=== PATIENT | female | born 1995 | race Two or more races ===

== ENCOUNTER 2018-05-23 03:43 | Emergency (ER) | payer MEDICAID ==
[~2018-05-23] VITALS: Ht 160 cm; Wt 53.1 kg
--- NOTE | 2018-05-23 03:55 | NUR ---
PT CAME TO EMERGENCY DEPT. COMPLAINING OF ITCHINESS, REDNESS, AND DIZZINESS AFTER TAKING FLAYGYL AND DIFLUCAN AROUND 2300 YESTERDAY. PT AXO4. RESPIRATIONS EVEN AND UNLABORED. BILATERAL REDNESS AROUND BOTH EYES. 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 PT SATURATING 99% ON ROOM AIR.
[2018-05-23] MEDS ORDERED: diphenhydrAMINE HCL 50 MG/ML VIAL IM ONE (04:00)
[2018-05-23] MEDS ORDERED: diphenhydrAMINE HCL 50 MG/ML VIAL ONE (04:01)
--- NOTE | 2018-05-23 04:15 | NUR ---
PT STATES SHE FEELS DOESNT FEEL ITHCY BEFORE.
[2018-05-23 04:53] VITALS: BP 128/78
--- NOTE | 2018-05-23 04:53 | NUR ---
Patient discharged to home in stable condition. Written and verbal after care instructions given. Patient verbalizes understanding of instruction.
== END 2018-05-23 04:54 | disposition home or self-care (01) ==
LOC: ER 03:43
DX: L50.8 Other urticaria (principal)
CPT/HCPCS: 96372; 99283; J1200

== ENCOUNTER 2019-02-26 18:04 | Emergency (ER) | payer MEDICAID ==
[~2019-02-26] VITALS: Ht 160 cm; Wt 58.1 kg
[2019-02-26] MEDS ORDERED: ONDANSETRON 4 MG TAB.RAPDIS SL ONE (18:30)
[2019-02-26] MEDS ORDERED: LIDOCAINE VISCOUS 2% UD 15 ML UDC MM ONE (18:30)
[2019-02-26] MEDS ORDERED: MAG HYDROX/AL HYDROX/SIMETH 30 ML UDC PO ONE (18:30)
--- NOTE | 2019-02-26 18:34 | NUR ---
patient arrived at unit bib mother, nausea vomiting and diarrhea, difficulty swallowing x 1 day. connected to monitor. will continue to monitor accordingly
[2019-02-26] MEDS ORDERED: ONDANSETRON 4 MG TAB.RAPDIS ONE (18:52)
--- NOTE | 2019-02-26 19:17 | NUR ---
PATIENT RESTING ON BED. NO ACUTE DISTRESS. MOTHER AT BEDSIDE. REPORT GIVEN TO POOL SCHULTE
[2019-02-26] MEDS ORDERED: MAG HYDROX/AL HYDROX/SIMETH 30 ML UDC ONE (19:18)
[2019-02-26] MEDS ORDERED: LIDOCAINE VISCOUS 2% UD 15 ML UDC ONE (19:18)
--- NOTE | 2019-02-26 19:45 | NUR ---
Patient discharged to home in stable condition. rx and Written and verbal after care instructions given. Patient verbalizes understanding of instruction.
[2019-02-26 19:52] VITALS: BP 115/60
== END 2019-02-26 19:45 | disposition home or self-care (01) ==
LOC: ER 18:05
DX: R11.2 Nausea with vomiting, unspecified (principal); F45.8 Other somatoform disorders
CPT/HCPCS: 99283; Q0162

== ENCOUNTER 2019-05-17 13:39 | Emergency (ER) | payer MEDICAID ==
[~2019-05-17] VITALS: Ht 160 cm; Wt 52.2 kg
--- NOTE | 2019-05-17 13:46 | NUR ---
CAME IN FOR DYSURIA,R FLANK PAIN AND CHILLS X "FEW DAYS", TO ER BED 12, HOOKED TO MONITOR, CHANGED TO HOSP GOWN, WARM BLANKET PROVIDED, AWAITING MD KAUFMAN.
--- NOTE | 2019-05-17 14:28 | NUR ---
DR POTTER AT BEDSIDE
[2019-05-17 15:09] LABS: APPEARANCE,URINE Clear (CLEAR); BILIRUBIN,URINE Negative (NEGATIVE); BLOOD, URINE Moderate Ery/uL (NEGATIVE); COLOR,URINE Yellow (YELLOW); KETONES,URINE 15 (NEGATIVE); LEUKOCYTE ESTERASE ,URINE Negative (NEGATIVE); NITRITE, URINE Negative (NEGATIVE); PROTEIN,URINE Negative (NEGATIVE); UGLUCOSE Negative (NEGATIVE); UROBILINOGEN,URINE 0.2 EU/dL (0.2)
[2019-05-17 15:13] LABS: BACTERIA,URINE Rare /HPF (None Seen); RBC,URINE 21-50 /HPF (0-2); SQUAMOUS EPITHELIAL CELL,UR Few /HPF (None Seen); WBC,URINE 0-2 /HPF (0-3)
[2019-05-17] MEDS ORDERED: predniSONE 20 MG TABLET ONE (15:30)
[2019-05-17] MEDS ORDERED: AMOXICILLIN TRIHYDRATE 250 MG CAPSULE ONE (15:30)
[2019-05-17 16:19] LABS: BASOPHILS % (AUTO) 0.4 % (0.0-2.0); EOSINOPHILS % (AUTO) 0.6 % (0.0-6.0); HEMATOCRIT 43 % (33-45); HEMOGLOBIN 14.4 g/dL (11.5-14.8); LYMPHOCYTES # (AUTO) 2.1 /CMM (0.8-4.8); LYMPHOCYTES % (AUTO) 21.9 % (20.0-44.0); MEAN CORPUSCULAR HGB CONC 34 g/dl (31.0-36.0); MEAN CORPUSCULAR VOLUME 87 fL (82-100); MONOCYTES # (AUTO) 0.5 /CMM (0.1-1.30); MONOCYTES % (AUTO) 4.9 % (2.0-12.0); NEUTROPHILS % (AUTO) 72.2 % (43.0-81.0); PLATELET COUNT (AUTO) 232 /CMM (150-450); RED BLOOD CELL COUNT(AUTO) 4.89 MIL/uL (4.0-5.2); WHITE BLOOD COUNT (AUTO) 9.6 K/uL (4.3-11.0)
[2019-05-17 16:28] LABS: CALCIUM, SERUM 9.5 mg/dL (8.5-10.1); CREATININE 0.7 mg/dL (0.6-1.3); POTASSIUM 4.4 mmol/L (3.5-5.1)
[2019-05-17 16:34] LABS: ALBUMIN 4.2 g/dL (3.4-5.0); BILIRUBIN,DIRECT 0.1 mg/dL (0.0-0.2); BILIRUBIN,TOTAL 0.7 mg/dL (0.2-1.0); TOTAL PROTEIN, SERUM 7.2 g/dL (6.4-8.2)
--- NOTE | 2019-05-17 17:47 | NUR ---
Patient discharged to home in stable condition. Written and verbal after care instructions given. Patient verbalizes understanding of instruction.
[2019-05-17 17:48] VITALS: BP 127/68
== END 2019-05-17 17:49 | disposition home or self-care (01) ==
LOC: ER 13:43
DX: R31.29 Other microscopic hematuria (principal); R10.31 Right lower quadrant pain
CPT/HCPCS: 36415; 74176; 80048; 80076; 80307; 81001; 83690; 84703; 85025; 99284; J7512; 81000-TC; G0480